=== PATIENT | male | born 1975 | race Caucasian/White ===

== ENCOUNTER → 2017-04-17 22:49 | Outpatient (CLI) | payer MEDICARE ==
[2017-04-17 23:34] LABS: UDS - AMPHET POSITIVE QUAL (NEGATIVE); UDS - BARB NEGATIVE QUAL (NEGATIVE); UDS - BENZO NEGATIVE QUAL (NEGATIVE); UDS - COCAINE NEGATIVE QUAL (NEGATIVE); UDS - METH NEGATIVE QUAL (NEGATIVE); UDS - OPIATE NEGATIVE QUAL (NEGATIVE); UDS - PCP NEGATIVE QUAL (NEGATIVE); UDS - THC POSITIVE QUAL (NEGATIVE)
== END | disposition home or self-care (01) ==
LOC: EDSTATUS 16:00 → D.LABREF 22:49 → D.ER 22:49
PROVIDERS: Emergency Medicine
DX: Z02.83 Encounter for blood-alcohol and blood-drug test (principal)

== ENCOUNTER → 2017-11-14 15:31 | Outpatient (CLI) | payer MEDICARE ==
[2017-11-14 15:54] LABS: UDS - AMPHET POSITIVE QUAL (NEGATIVE); UDS - BARB NEGATIVE QUAL (NEGATIVE); UDS - BENZO NEGATIVE QUAL (NEGATIVE); UDS - COCAINE NEGATIVE QUAL (NEGATIVE); UDS - OPIATE NEGATIVE QUAL (NEGATIVE); UDS - PCP NEGATIVE QUAL (NEGATIVE); UDS - THC POSITIVE QUAL (NEGATIVE)
== END | disposition home or self-care (01) ==
LOC: D.LAB 15:31
PROVIDERS: Emergency Medicine
DX: F11.20 Opioid dependence, uncomplicated (principal)

== ENCOUNTER 2018-06-14 00:31 | Emergency (ER) | payer MEDICARE ==
[~2018-06-14] VITALS: Ht 177.8 cm; Wt 79.5 kg
[2018-06-14 00:35] VITALS: BP 139/79; Ht 177.8 cm; Wt 79.5 kg
[2018-06-14] MEDS ORDERED: BUPRENORPHINE HC8 MG SL (00:36)
[2018-06-14] MEDS ORDERED: MEDROL DOSE PACK4 MG PO (00:50)
[2018-06-14] MEDS ORDERED: PHENERGAN25 M1 PO (00:50)
== END 2018-06-14 01:05 | disposition home or self-care (01) ==
LOC: D.ER 00:31
DX: L25.9 Unspecified contact dermatitis, unspecified cause (principal); F17.200 Nicotine dependence, unspecified, uncomplicated

== ENCOUNTER → 2018-09-03 19:08 | Outpatient (CLI) | payer MEDICARE ==
[2018-06-14 00:35] VITALS: BMI 25.1
[~2018-09-03 19:08] MED LIST: BUPRENORPHINE HC8 MG SL; MEDROL DOSE PACK4 MG PO; PHENERGAN25 M1 PO
[2018-09-03 19:45] LABS: UDS - AMPHET NEGATIVE QUAL (NEGATIVE); UDS - BARB NEGATIVE QUAL (NEGATIVE); UDS - BENZO NEGATIVE QUAL (NEGATIVE); UDS - COCAINE NEGATIVE QUAL (NEGATIVE); UDS - OPIATE NEGATIVE QUAL (NEGATIVE); UDS - PCP NEGATIVE QUAL (NEGATIVE); UDS - THC POSITIVE QUAL (NEGATIVE)
== END | disposition home or self-care (01) ==
LOC: D.LABREF 19:08
PROVIDERS: Family Medicine
DX: F11.20 Opioid dependence, uncomplicated (principal)

== ENCOUNTER → 2018-11-05 10:12 | Outpatient (CLI) | payer MEDICARE ==
[2018-06-14 00:35] VITALS: BMI 25.1
[2018-11-05 10:47] LABS: UDS - AMPHET POSITIVE QUAL (NEGATIVE); UDS - BARB NEGATIVE QUAL (NEGATIVE); UDS - BENZO NEGATIVE QUAL (NEGATIVE); UDS - COCAINE NEGATIVE QUAL (NEGATIVE); UDS - OPIATE NEGATIVE QUAL (NEGATIVE); UDS - PCP NEGATIVE QUAL (NEGATIVE); UDS - THC POSITIVE QUAL (NEGATIVE)
== END | disposition home or self-care (01) ==
LOC: D.LAB 10:12
PROVIDERS: Emergency Medicine
DX: F11.20 Opioid dependence, uncomplicated (principal)

== ENCOUNTER 2020-08-12 02:48 | Inpatient (IN) | payer MEDICARE, MEDICAID ==
[~2020-08-12] VITALS: Ht 177.8 cm; Wt 66.8 kg
[2020-08-12 02:50] VITALS: Ht 177.8 cm; Wt 66.8 kg
[2020-08-12] MEDS ORDERED: BUPRENORPHIN-N1 EACH SL (02:52)
--- NOTE | 2020-08-12 03:47 | NUR ---
LAB AT BEDSIDE. BC X 2 COMPLETE
[2020-08-12 03:51] LABS: BASOPHILS 0.2 % (0-2); EOSINOPHILS 3.7 % (0-7); HEMOGLOBIN 14.7 g/dL (13.5-17.5); IMMATURE GRANULOCYTES 0.2 % (0-5); LYMPHOCYTES 24.3 % (15-50); MCH 28.1 pg (26.0-34.0); MCHC 32.7 g/dL (31.0-37.0); MONOCYTES 13.1 % (2-11); NEUTROPHILS 58.5 % (40-80); PLATELET COUNT 293 10x3/uL (130-400); RBC 5.23 10x6/uL (4.20-6.10); RDW 13.4 % (11.5-14.5); WBC 9.8 10x3/uL (4.8-10.8)
[2020-08-12 03:58] LABS: APTT 30.3 SECONDS (22.8-39.4); CALC OSMOLALITY 282 mosm/kg (275-300); CALCIUM 8.8 mg/dL (8.5-10.1); CARBON DIOXIDE 31.5 mmol/L (21.0-32.0); CHLORIDE - SERUM 102 mmol/L (98-107); CREATININE - SERUM 0.9 mg/dL (0.6-1.3); GLUCOSE 102 mg/dL (74-106); INR 0.81 (0.85-1.17); POTASSIUM - SERUM 4.3 mmol/L (3.5-5.1); PROTIME 11.2 SECONDS (11.6-15.0); SODIUM 141 mmol/L (136-145); UREA NITROGEN 19 mg/dL (7-18); eGFR NON AFRICAN AMERICAN > 90 mL/min (90-120)
[2020-08-12 04:00] LABS: D-DIMER-QUANTITATIVE 0.53 ug/mLFEU (0.20-0.54)
[2020-08-12 04:04] LABS: ALBUMIN 3.3 g/dL (3.4-5.0); ALKALINE PHOSPHATASE 129 U/L (30-120); ALT (SGPT) 28 U/L (10-68); BILIRUBIN - TOTAL 0.24 mg/dL (0.2-1.3); C-REACTIVE PROTEIN 1.9 mg/dL (0.0-0.9); PROTEIN - SERUM 7.5 g/dL (6.4-8.2)
--- NOTE | 2020-08-12 04:05 | NUR ---
WOUND CLEANED WITH ANTISEPTIC WASH THEN WET TO DRY DRESSING APPLIED TO L KNEE. TOLERATED WELL.
[2020-08-12] MEDS ORDERED: BACTRIM DS TAB1 EAC1 PO (10:36)
--- NOTE | 2020-08-12 11:08 | NUR ---
RECEIVED REPORT FROM BRENDA PATEL
[2020-08-12 17:28] VITALS: BP 149/86
== END 2020-08-12 14:07 | disposition home or self-care (01) | DRG 605 ==
LOC: D.ER 02:48 → D.EDHOLD 05:31
PROVIDERS: Family Medicine; ADMIT Family Medicine; ATTEND Family Medicine
DX: S81.002A Unspecified open wound, left knee, initial encounter (principal); X58.XXXA Exposure to other specified factors, initial encounter; Z72.0 Tobacco use

== ENCOUNTER 2020-12-24 02:24 | Emergency (ER) | payer MEDICARE, MEDICAID ==
[~2020-12-24] VITALS: Ht 177.8 cm; Wt 83.9 kg
[~2020-12-24 02:24] MED LIST changes: +BACTRIM DS TAB1 EAC1 PO; +BUPRENORPHIN-N1 EACH SL; +HYDROCODON-ACE1 EAC7 PO
[2020-12-24 02:32] VITALS: BP 131/89; Ht 177.8 cm; Wt 83.9 kg
[2020-12-24] MEDS ORDERED: SUBOXONE 2 MG-01 TAB SL (02:34)
[2020-12-24] MEDS ORDERED: HYDROCODONE-AC1 EAC2 PO (03:20)
== END 2020-12-24 03:53 | disposition home or self-care (01) ==
LOC: D.ER 02:24
DX: M23.92 Unspecified internal derangement of left knee (principal); M54.9 Dorsalgia, unspecified

== ENCOUNTER → 2020-12-28 07:58 | Outpatient (CLI) | payer MEDICARE, MEDICAID ==
[2020-12-24 02:32] VITALS: BMI 21.5
[~2020-12-28 07:58] MED LIST changes: +HYDROCODONE-AC1 EAC2 PO; +SUBOXONE 2 MG-01 TAB SL
== END | disposition home or self-care (01) ==
LOC: D.MRI 07:58
PROVIDERS: ATTEND Orthopaedic Surgery
DX: M23.332 Other meniscus derangements, other medial meniscus, left knee (principal)

== ENCOUNTER 2021-02-04 20:07 | Emergency (ER) | payer MEDICARE, MEDICAID ==
[~2021-02-04] VITALS: Ht 177.8 cm; Wt 77.3 kg
[2021-02-04 20:22] VITALS: BP 127/81; Ht 177.8 cm; Wt 77.3 kg
== END 2021-02-04 22:01 | disposition home or self-care (01) ==
LOC: D.ER 20:07
DX: S69.92XA Unspecified injury of left wrist, hand and finger(s), initial encounter (principal); X58.XXXA Exposure to other specified factors, initial encounter

== ENCOUNTER 2021-03-17 14:51 | Emergency (ER) | payer MEDICARE, MEDICAID ==
[~2021-03-17] VITALS: Ht 177.8 cm; Wt 75.0 kg
[2021-03-17 14:55] VITALS: Ht 177.8 cm; Wt 75.0 kg
[2021-03-17 15:49] LABS: BASOPHILS 0.5 % (0-2); EOSINOPHILS 1.2 % (0-7); HEMATOCRIT 41.5 % (42.0-54.0); HEMOGLOBIN 13.7 g/dL (13.5-17.5); LYMPHOCYTES 16.8 % (15-50); MCH 27.7 pg (26.0-34.0); MEAN PLATELET VOLUME 7.2 fL (7.4-10.4); MONOCYTES 6.5 % (2-11); PLATELET COUNT 294 10x3/uL (130-400); RBC 4.94 10x6/uL (4.20-6.10); RDW 13.4 % (11.5-14.5); WBC 9.8 10x3/uL (4.8-10.8)
[2021-03-17 15:53] LABS: CALC OSMOLALITY 281 mosm/kg (275-300); CALCIUM 8.7 mg/dL (8.5-10.1); CARBON DIOXIDE 26.7 mmol/L (21.0-32.0); CHLORIDE - SERUM 105 mmol/L (98-107); CREATININE - SERUM 1.1 mg/dL (0.6-1.3); GLUCOSE 142 mg/dL (74-106); POTASSIUM - SERUM 4.2 mmol/L (3.5-5.1); SODIUM 140 mmol/L (136-145); UREA NITROGEN 16 mg/dL (7-18); eGFR NON AFRICAN AMERICAN 77 mL/min (90-120)
[2021-03-17 15:59] LABS: ALBUMIN 3.7 g/dL (3.4-5.0); ALKALINE PHOSPHATASE 92 U/L (30-120); ALT (SGPT) 32 U/L (10-68); BILIRUBIN - TOTAL 0.45 mg/dL (0.2-1.3); PROTEIN - SERUM 7.2 g/dL (6.4-8.2)
[2021-03-17] MEDS ORDERED: CLEOCIN HCL300 MG PO (16:25)
[2021-03-17] MEDS ORDERED: CEPHALEXIN500 M1 PO (16:25)
[2021-03-17] MEDS ORDERED: HYDROCODON-ACE1 EAC7 PO (16:25)
[2021-03-17] MEDS ORDERED: DICLOFENAC SODI50 MG PO (16:25)
[2021-03-17] MEDS ORDERED: ZOFRAN ODT4 MG/UDTAB PO (16:25)
== END 2021-03-17 17:08 | disposition home or self-care (01) ==
LOC: D.ER 14:51
PROVIDERS: Family Medicine
DX: L02.511 Cutaneous abscess of right hand (principal); L03.113 Cellulitis of right upper limb; R11.2 Nausea with vomiting, unspecified